=== PATIENT | female | born 1960 | race African-American/Black ===

== ENCOUNTER 2016-10-06 18:52 | Emergency (ER) | payer OTHER ==
[2016-10-06 18:58] VITALS: BP 125/63; PULSE 66; TEMP 98; BMI 28.2
== END 2016-10-06 20:43 | disposition left against medical advice (07) ==
LOC: JER 18:52
DX: Z53.21 Procedure and treatment not carried out due to patient leaving prior to being seen by health care provider (principal)
CPT/HCPCS: 99281-25

== ENCOUNTER 2016-11-25 05:07 | Emergency (ER) | payer OTHER ==
--- NOTE | 2016-11-25 05:16 | PDOC ---
History of Present Illness - General History Source: Patient Exam Limitations: No Limitations - History of Present Illness Initial Comments: 11/25/16 05:37 56 y/o F with a PMHx of schizoaffective disorder, anxiety presents to the ED with chest pain today. Patient was at the ER with her son who was being treated. She became anxious because of her son. She subsequently felt chest pain. She states it may be due to her anxiety. Denies SOB, palpitations, diaphoresis. Denies NVD. Denies fever, chills. <Brittney Lin - Last Filed: 11/25/16 05:37> <Leonila Munson - Last Filed: 11/25/16 07:11> - General Stated Complaint: PAIN Time Seen by Provider: 11/25/16 05:16 Past History <Brittney Lin - Last Filed: 11/25/16 05:37> - Past Medical History HTN: Yes Psychiatric Problems: Yes (SCHEIZOPHRENIC) - Surgical History Abdominal Surgery: Yes (HERNIA) - Immunization History Immunization Up to Date: Yes - Suicide/Smoking/Psychosocial Hx Smoking History: Never smoked Have you smoked in the past 12 months: No Number of Cigarettes Smoked Daily: 0 Cigars Per Day: 0 Hx Alcohol Use: No Drug/Substance Use Hx: No Substance Use Type: None <Leonila Munson - Last Filed: 11/25/16 07:11> - Past Medical History Allergies/Adverse Reactions: Allergies Allergy/AdvReac Type Severity Reaction Status Date / Time cat dander Allergy Verified 11/25/16 05:38 dog dander Allergy Verified 11/25/16 05:38 Penicillins Allergy Verified 11/25/16 05:38 rats Allergy Uncoded 11/25/16 05:38 roaches Allergy Uncoded 11/25/16 05:38 Home Medications: Ambulatory Orders Clonazepam [Klonopin] 1 mg PO AM 12/13/15 Clonazepam [Klonopin] 2 mg PO HS 12/13/15 Diphenhydramine [Benadryl Capsule -] 50 mg PO DAILY 12/13/15 Naproxen [Naprosyn -] 500 mg PO BID #14 tablet 12/13/15 Perphenazine [TRILAFON -] 8 mg PO BID 12/13/15 Sertraline HCl [Zoloft] 100 mg PO AM 12/13/15 Review of Systems - Review of Systems Able to Perform ROS?: Yes Comments:: 11/25/16 05:37 GENERAL/CONSTITUTIONAL: No fever or chills. No weakness. HEAD, EYES, EARS, NOSE AND THROAT: No change in vision. No ear pain or discharge. No sore throat. CARDIOVASCULAR: (+) chest pain. No shortness of breath. RESPIRATORY: No cough, wheezing, or hemoptysis. GASTROINTESTINAL: No nausea, vomiting, diarrhea or constipation. GENITOURINARY: No dysuria, frequency, or change in urination. MUSCULOSKELETAL: No joint or muscle swelling or pain. No neck or back pain. SKIN: No rash NEUROLOGIC: No headache, vertigo, loss of consciousness, or change in strength/ sensation. ENDOCRINE: No increased thirst. No abnormal weight change. HEMATOLOGIC/LYMPHATIC: No anemia, easy bleeding, or history of blood clots. ALLERGIC/IMMUNOLOGIC: No hives or skin allergy. <Brittney Lin - Last Filed: 11/25/16 05:37> *Physical Exam - Physical Exam Comments: 11/25/16 05:38 GENERAL: Awake, alert, and fully oriented, tearful, anxious HEAD: No signs of trauma EYES: PERRLA, EOMI, sclera anicteric, conjunctiva clear ENT: Auricles normal inspection, hearing grossly normal, nares patent, oropharynx clear without exudates. Moist mucosa NECK: Normal ROM, supple, no lymphadenopathy, JVD, or masses LUNGS: Breath sounds equal, clear to auscultation bilaterally. No wheezes, and no crackles HEART: Regular rate and rhythm, normal S1 and S2, no murmurs, rubs or gallops ABDOMEN: Soft, nontender, normoactive bowel sounds. No guarding, no rebound. No masses EXTREMITIES: Normal range of motion, no edema. No clubbing or cyanosis. No cords, erythema, or tenderness NEUROLOGICAL: Cranial nerves II through XII grossly intact. Normal speech, normal gait SKIN: Warm, Dry, normal turgor, no rashes or lesions noted. <Brittney Lin - Last Filed: 11/25/16 05:37> Heart Score/ECG Review - ECG Intrepretation Comment:: 11/25/16 06:05 sinus at 74, t wave inversions inferior/lateral/anterior that are unchanged from prior, prolonged qt <Leonila Munson - Last Filed: 11/25/16 07:11> ED Treatment Course - LABORATORY CBC & Chemistry Diagram: 11/25/16 05:50 11/25/16 05:50 <Leonila Munson - Last Filed: 11/25/16 07:11> Medical Decision Making - Medical Decision Making 11/25/16 05:26 a/p: 56yo female with acute stress reaction hx of schizoaffective disorder, takes klonopin in the ed with her son for eval of his palpitations - he has a defibrillator and needs a heart transplant. pt tearful and anxious states she developed cp while in the ED told by her PMD she needed to see cards ekg, labs, reassess will dose klonopin to help with anxiety and stress atypical cp 11/25/16 06:04 11/25/16 06:23 re-eval: pt feeling much better. NRB removed. NO cp at this time. states her anxiety is better. pt sleeping, easily arousable. pt pending lab work. 11/25/16 07:07 pt feeling better. no pain at this time. anxiety resolved. pt stable for d/c to home. suspect anxiety and acute stress reaction. Discussed all reasons to return to the ED and need for follow up with PMD. ANswered all questions. Pt states she also drank coca cola last night, which may have made her anxiety worse. <Leonila Munson - Last Filed: 11/25/16 07:11> *DC/Admit/Observation/Transfer - Attestations Scribe Attestion: 11/25/16 05:38 Documentation prepared by Brittney Lin, acting as medical office receptionist for Leonila Munson DO. <Brittney Lin - Last Filed: 11/25/16 05:37> - Discharge Dispostion Admit: No - Attestations Physician Attestion: 11/25/16 07:10 I, Dr. Leonila Munson DO, attest that this document has been prepared under my direction and personally reviewed by me in its entirety. I further attest, that it accurately reflects all work, treatment, procedures and medical decision -making performed by me. <Leonila Munson - Last Filed: 11/25/16 07:11> Diagnosis at time of Disposition: Atypical chest pain, Acute stress reaction - Discharge Dispostion Disposition: HOME Condition at time of disposition: Stable - Referrals Referrals: Marcia Euceda NP [Primary Care Provider] - - Patient Instructions Printed Discharge Instructions: How stressed are you?, DI for Atypical Chest Pain Additional Instructions: Please take your regular meds. Please follow up with your PMD and keep your appointment with the pin puller for December. Please return to the ED with any further concerns.
[2016-11-25] MEDS ORDERED: clonazePAM 0.5 MG TABLET PO ONE (05:25)
[2016-11-25 05:40] VITALS: BMI 31.1
[2016-11-25] MEDS ORDERED: clonazePAM 0.5 MG TABLET ONE (05:50)
[2016-11-25 06:18] LABS: BASOPHIL 0.4 % (0-2.0); EOSINOPHIL 1.3 % (0-4.5); MCH 28.3 pg (25.7-33.7); MCHC 33.6 g/dl (32.0-36.0); MEAN CELL VOLUME 84.2 fl (80-96); MEAN PLT VOLUME 7.9 fl (7.5-11.1); NEUTROPHILS 34.6 % (42.8-82.8); PLATELET COUNT 180 K/MM3 (134-434); RDW 14.1 % (11.6-15.6); WHITE BLOOD COUNT 4.5 K/mm3 (4.0-10.0)
[2016-11-25 06:41] LABS: ALBUMIN 3.7 g/dl (3.4-5.0); ANION GAP 8 (8-16); CALCIUM 8.9 mg/dL (8.5-10.1); CO2 26 mmol/L (21-32); CREATININE 0.7 mg/dL (0.55-1.02); GLUCOSE,RANDOM 126 mg/dL (74-106); SGOT/AST 38 U/L (15-37); SGPT/ALT 52 U/L (12-78)
[2016-11-25 06:44] LABS: ALK PHOS 178 U/L (45-117); BILIRUBIN,TOTAL 0.3 mg/dL (0.2-1.0); CPK 160 IU/L (26-192); TOT PROT 7.8 g/dl (6.4-8.2); TROPONIN I < 0.02 ng/ml (0.00-0.05)
[2016-11-25 07:39] VITALS: BP 121/84; PULSE 73; TEMP 97.9
--- NOTE | 2016-11-25 22:08 | EKG ---
Test Reason : Blood Pressure : / mmHG Vent. Rate : 074 BPM Atrial Rate : 074 BPM P-R Int : 174 ms QRS Dur : 082 ms QT Int : 426 ms P-R-T Axes : 059 078 -16 degrees QTc Int : 472 ms NORMAL SINUS RHYTHM LEFT ATRIAL ABNORMALITY T WAVE ABNORMALITY, CONSIDER INFERIOR ISCHEMIA PROLONGED QT ABNORMAL ECG WHEN COMPARED WITH ECG OF 13-DEC-2015 02:14, T WAVE INVERSION LESS EVIDENT IN ANTEROLATERAL LEADS REPEAT EKG IF CLINICALLY INDICATED Confirmed by SHELBY VILLASEÑOR MD ([id number]) on 11/25/2016 10:08:09 PM Referred By: Confirmed By:SHELBY VILLASEÑOR MD
== END 2016-11-25 07:38 | disposition home or self-care (01) ==
LOC: JER 05:07
DX: R07.89 Other chest pain (principal); F43.0 Acute stress reaction; F25.9 Schizoaffective disorder, unspecified; F41.9 Anxiety disorder, unspecified; I10 Essential (primary) hypertension
CPT/HCPCS: 36415; 80053; 82550; 82553; 84484; 85025; 93005; 93010; 99282-25; 99283-25